=== PATIENT | female | born 1930 | race Caucasian/White ===

== ENCOUNTER 2019-10-05 13:54 | Inpatient (IN) | payer MEDICARE, BC ==
[2019-10-05] MEDS: Lactated Ringers 1,000 ML IV SCH ×2 (15:55→21:23)
[2019-10-05] MEDS ORDERED: Acetaminophen 325 MG Tab PO PRN (15:55)
[2019-10-05] MEDS ORDERED: Acetaminophen 650 MG Tab.ER PO PRN (16:52)
[2019-10-05] MEDS ORDERED: Diclofenac Sodium 1% Gel 100 GM Tube TOP SCH (17:00)
[2019-10-05] MEDS: Carvedilol 6.25 MG Tab PO SCH (17:59)
--- NOTE | 2019-10-05 19:18 | HP ---
ADMISSION DATE: 10/05/2019 CHIEF COMPLAINT: Weakness, dehydration, urinary tract infection. HISTORY OF PRESENT ILLNESS: Mrs. Almanzar is an 89-year-old resident of [facility] with a history of dementia, rheumatoid arthritis, chronic heart murmur, and hypertension. She has had a history of frequent recurrent urinary tract infections. She was seen at [facility] last week for urinary tract infection initially treated with Cipro. She did not respond to this and had 2 visits last week where she received both IV fluid for dehydration and IV Rocephin and IM Rocephin. She returned to the memory care unit at [facility], and over the weekend, declined in strength, level of alertness, oral intake, and apparently is not able to keep enough liquids in to hydrate her. For this reason, she came to the hospital for admission. The patient is unable to give a reliable history due to her dementia. Her daughter accompanies her today, however, and can give history of the recent illness and some of her past medical history. She did have a fever last week up to 102 around 10 days ago. After she was initially treated for urinary tract infection, the fever resolved and has not come back. She has never had any respiratory symptoms with this. She has not had nausea, vomiting, or diarrhea. 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 She has a history of coronary artery disease with aortic stenosis, hypertension, hyperlipidemia, GERD, type 2 diabetes, osteoporosis. She has slowly advancing dementia. She is status post right total knee arthroplasty. She has had mixed urinary incontinence and she is on long-term methotrexate for her rheumatoid arthritis. MEDICATIONS: 1. Ranitidine 150 mg p.o. b.i.d. 2. Oxybutynin 5 mg p.o. at bedtime. 3. Methotrexate 10 mg every Saturday. 4. Melatonin 3 mg at bedtime. 5. Milk of magnesia daily p.r.n. 6. Loperamide p.r.n. 7. Lisinopril 40 mg daily. 8. Folic acid 1 mg daily. 9. Duloxetine 60 mg daily. 10.Aricept 10 mg daily. 11.Diclofenac gel q.i.d. 12.Vitamin D 2000 units daily. 13.She has also recently started oral cephalexin for the UTI. 14.Carvedilol 6.25 mg b.i.d. 15.BuSpar 5 mg b.i.d. 16.Aspirin 81 mg daily. 17.Tylenol Arthritis p.r.n. ALLERGIES: Penicillin. HABITS: Nonsmoker and nondrinker. FAMILY AND SOCIAL HISTORY: The patient is . She lives at [facility]. She was accompanied by her daughter, Celina Bermeo, today. REVIEW OF SYSTEMS: GENERAL: No seizures, syncope. She has had approximately 15-pound weight loss over last couple of months, however. HEENT: No recent changes in hearing or vision. RESPIRATORY: No cough or respiratory symptoms. CHEST: No complaints of chest pain. ABDOMEN: No abdominal pains, nausea, or diarrhea. EXTREMITIES: She has had good control of her arthritic joint pain when she went on the methotrexate and Cymbalta. No extremity swelling or skin rash. PHYSICAL EXAMINATION: GENERAL: She is awake, and pleasant. She seems to understand occasional questions, but is not able to carry on a conversation or answer reliably with apparent dementia. HEENT: Show pupils to be equal and reactive. Oropharynx clear. Mouth dry. LUNGS: Clear with distant breath sounds. HEART: Regular with a 3/6 systolic murmur loudest in the aortic area. No rub or gallop heard. ABDOMEN: Normal bowel sounds. Soft. No distention. No tenderness. EXTREMITIES: Show no edema and healthy-appearing feet. LABORATORY DATA: White count 15,800, hemoglobin 13.2, MCV 92, 76 segs, 5 bands, 10 lymphocytes, 8 monos, 1 baso. Sodium 159, potassium 3.7, chloride 121, BUN 50, creatinine 1.4. Lactic acid 2.1. Urinalysis pending. ASSESSMENT: An 89-year-old woman with rheumatoid arthritis, mild immunosuppression, and dementia, now admitted with relatively severe dehydration and recent urinary tract infection. PLAN: Urinalysis is sent and pending. She is started on IV fluids. We will start IV antibiotics as well. I anticipate a short hospitalization with plans to return to her assisted living facility memory care unit at [facility] upon discharge. We will continue to provide palliative care measures for Mrs. Almanzar's underlying dementia and other health problems. /[id number] DARCI/SYED
[2019-10-05] MEDS: Oxybutynin 5 MG Tab PO SCH (21:26)
[2019-10-05] MEDS: Melatonin 3 MG Tab PO SCH (21:26)
[2019-10-05] MEDS: Donepezil 10 MG Tab PO SCH (21:26)
[2019-10-06] MEDS: Lactated Ringers 1,000 ML IV SCH (04:37)
[2019-10-06] MEDS ORDERED: DULoxetine 60 MG Cap PO SCH (09:00)
[2019-10-06] MEDS: Carvedilol 6.25 MG Tab PO SCH ×2 (09:33→19:14)
[2019-10-06] MEDS: Aspirin 81 MG Tab.EC PO SCH (09:33)
[2019-10-06] MEDS: Folic Acid 1 MG Tab PO SCH (09:33)
[2019-10-06] MEDS: DULoxetine 30 MG Cap PO SCH (09:33)
[2019-10-06] MEDS: Famotidine 10 MG Tab PO SCH (09:33)
[2019-10-06] MEDS: Sodium Chloride 0.45% 1,000 ML IV SCH ×3 (09:34→21:09)
--- NOTE | 2019-10-06 13:48 | PN ---
DATE SEEN: 10/06/2019 HISTORY: Ms. Almanzar is an 89-year-old resident of the memory unit at [facility]. She was seen as an outpatient for urinary tract infection with dehydration and was given IV antibiotic and IV fluid as an outpatient. However, she was unable to take in enough fluids to sustain herself, and she was admitted to acute care yesterday. She was given a fluid bolus of a liter of lactated Ringer's followed by 150 an hour overnight. This morning, she is a little bit more alert. She is eating breakfast. She has been afebrile overnight. Her lab studies included a sodium of 159, chloride 121, BUN 50, creatinine 1.4, and a lactic acid of 2.1 on admission. This morning, her sodium is 158, chloride 122, BUN 51, creatinine 1.4, and her lactic acid down to normal at 1.5. ProBNP 12,500. PHYSICAL EXAMINATION: GENERAL: She answers questions in one word answers and is eating breakfast well, examined. LUNGS: Have distant breath sounds. No consolidation. HEART: Regular without murmur. ABDOMEN: Soft. EXTREMITIES: Show no edema. VITAL SIGNS: Blood pressure 93/52, pulse 78, respirations 18. ASSESSMENT: 1. Severe dehydration with hypernatremia and azotemia. 2. History of urinary tract infection, treated as an outpatient. 3. No clinical or laboratory evidence of sepsis today. PLAN: We will discontinue her IV antibiotics. Change her IV fluid from lactated Ringer's to half-normal saline. Recheck labs in the a.m. and continue oral intake as tolerated. I anticipate another 24 to 48 hours of acute hospitalization followed by plans to return to [facility] upon recovery. /[id number] DARCI/SYED
[2019-10-06] MEDS: WATER FOR INJECTION IV SCH (17:37)
[2019-10-06] MEDS: AZTREONAM IV SCH (17:37)
[2019-10-06] MEDS: STERILE IV SCH (17:37)
[2019-10-06] MEDS: Donepezil 10 MG Tab PO SCH (20:44)
[2019-10-06] MEDS: Melatonin 3 MG Tab PO SCH (20:44)
[2019-10-06] MEDS: Oxybutynin 5 MG Tab PO SCH (20:44)
[2019-10-07] MEDS: STERILE IV SCH ×2 (02:45→09:46)
[2019-10-07] MEDS: AZTREONAM IV SCH ×2 (02:45→09:46)
[2019-10-07] MEDS: WATER FOR INJECTION IV SCH ×2 (02:45→09:46)
[2019-10-07] MEDS: Sodium Chloride 0.45% 1,000 ML IV SCH ×3 (03:51→17:14)
[2019-10-07] MEDS: Carvedilol 6.25 MG Tab PO SCH (09:43)
[2019-10-07] MEDS: DULoxetine 30 MG Cap PO SCH (09:43)
[2019-10-07] MEDS: Aspirin 81 MG Tab.EC PO SCH (09:44)
[2019-10-07] MEDS: Folic Acid 1 MG Tab PO SCH (09:44)
[2019-10-07] MEDS: Famotidine 10 MG Tab PO SCH (09:44)
[2019-10-07] MEDS ORDERED: Potassium Chloride 8 MEQ Tab.ER PO SCH (10:30)
--- NOTE | 2019-10-07 10:52 | PN ---
DATE SEEN: 10/07/2019 HISTORY: Ms. Almanzar is an 89-year-old woman who came to the hospital with severe dehydration. She had a urinary tract infection, treated as an outpatient and never was able to regain her hydration, nutrition, etc. On admission, her white count was 15,800. Sodium 159, chloride 121, potassium 3.7, BUN 50, and creatinine 1.4. She has been given IV fluids starting with lactated Ringer's and then switched over to half-normal saline. This morning, she is much more bright and alert. She was also started on IV antibiotic for concern for sepsis. This ruled out and her IV antibiotic was stopped. PHYSICAL EXAMINATION: GENERAL: She is alert and is speaking this morning. She is in good spirits. VITAL SIGNS: Blood pressure 92/62, pulse 85 and regular, respirations 18, O2 saturation 95% on room air, temperature 98. SKIN: Shows no rash. Mouth is dry. LUNGS: Clear. HEART: Regular with a 2-3/6 systolic murmur. ABDOMEN: Soft and nontender. EXTREMITIES: Show no edema. LABORATORY DATA: This morning, white count 10,400, hemoglobin 11.1. Sodium 150, potassium 3.3, chloride 117, BUN 34, creatinine 0.9. ASSESSMENT: 1. Severe dehydration with hypernatremia, hypokalemia, and azotemia. 2. Recent urinary tract infection. 3. Dementia. PLAN: We will continue her IV fluids. Follow up electrolytes in a.m. and anticipate discharge in 48 to 72 hours back to [facility] if she continues to improve. /[id number] DARCI/SYED HOPE
[2019-10-07] MEDS: Potassium Chloride 10 MEQ Tab.ER PO SCH ×2 (12:10→20:04)
[2019-10-07] MEDS: Melatonin 3 MG Tab PO SCH (20:04)
[2019-10-07] MEDS: Donepezil 10 MG Tab PO SCH (20:04)
[2019-10-07] MEDS: Oxybutynin 5 MG Tab PO SCH (20:04)
[2019-10-07] MEDS ORDERED: Carvedilol 3.125 MG Tab PO SCH (21:00)
[2019-10-08] MEDS: Sodium Chloride 0.45% 1,000 ML IV SCH ×2 (07:00)
[2019-10-08] MEDS: Folic Acid 1 MG Tab PO SCH (08:11)
[2019-10-08] MEDS: DULoxetine 30 MG Cap PO SCH (08:11)
[2019-10-08] MEDS: Aspirin 81 MG Tab.EC PO SCH (08:12)
[2019-10-08] MEDS: Potassium Chloride 10 MEQ Tab.ER PO SCH ×2 (08:12→20:59)
[2019-10-08] MEDS: Famotidine 10 MG Tab PO SCH (08:12)
[2019-10-08] MEDS ORDERED: Enoxaparin 30 MG/0.3 ML Syringe SUBCUT SCH (09:00)
[2019-10-08] MEDS ORDERED: Apixaban 5 MG Tab PO SCH ×2 (10:00→21:00)
[2019-10-08] MEDS: Apixaban 5 MG Tab PO SCH ×2 (10:40→20:59)
--- NOTE | 2019-10-08 14:43 | US ---
INDICATION: Swollen leg, question DVT. DUPLEX ULTRASOUND LEFT LOWER EXTREMITY VEINS: Utilizing 2-D real-time duplex Doppler spectral analysis and color flow imaging, examination of the left lower extremity veins was obtained including the common femoral vein, proximal DFE, proximal femoral vein, middle femoral vein, distal femoral vein, popliteal vein , and posterior tibial vein. The peroneal vein was not visualized. The deep venous structures were noncompressible and showed no color flow. Echogenic material is noted within them. There was no significant venous blood flow demonstrated with noncompressible venous structures noted throughout compatible with extensive deep venous thrombosis. IMPRESSION: Extensive deep venous thrombosis left lower extremity. MTDD
[2019-10-08] MEDS ORDERED: Magnesium Hydroxide 400 MG/5 ML Susp 30 ML Cup PO PRN (17:21)
[2019-10-08] MEDS: Donepezil 10 MG Tab PO SCH (20:59)
[2019-10-08] MEDS: Oxybutynin 5 MG Tab PO SCH (21:00)
[2019-10-08] MEDS: Melatonin 3 MG Tab PO SCH (21:00)
[2019-10-09] MEDS: Folic Acid 1 MG Tab PO SCH (08:45)
[2019-10-09] MEDS: Famotidine 10 MG Tab PO SCH (08:45)
[2019-10-09] MEDS: Potassium Chloride 10 MEQ Tab.ER PO SCH (08:45)
[2019-10-09] MEDS: Apixaban 5 MG Tab PO SCH (08:45)
[2019-10-09] MEDS: Aspirin 81 MG Tab.EC PO SCH (08:45)
[2019-10-09] MEDS: DULoxetine 30 MG Cap PO SCH (08:45)
[2019-10-09] MEDS ORDERED: Glycerin Adult 2.1 GM Supp RECTAL ONE (11:38)
--- NOTE | 2019-10-09 13:54 | PCM.DCSUM1 ---
Discharge Summary - Hospital Course HPI Initial Comments: Treated as an outpatient for UTI, severe dehydration in the clinic with daily IV fluid boluses as family did not want admission, was slowly improving but sodium remained elevated and was sent to ER and admitted for severe dehydration , hypernatremia, failure to thrive. Diagnosis: Stroke: No - Discharge Data Discharge Date: 10/09/19 Discharge Disposition: Home, W Home Health Agency 06 Condition: Stable - Referral to Home Health Date of Face to Face Encounter: 10/09/19 Reason for Homebound Status: Memory unit, End stage Dementia. Hospice Consult. Primary Care Physician: GLORIA Brooke Skilled Need: hospice consult - Discharge Diagnosis/Problem(s) (1) Dehydration, severe SNOMED Code(s): 145404715 ICD Code: E86.0 - DEHYDRATION Status: Resolved Current Visit: Yes (2) Hypernatremia SNOMED Code(s): 732459305 ICD Code: E87.0 - HYPEROSMOLALITY AND HYPERNATREMIA Status: Resolved Current Visit: Yes (3) DVT (deep venous thrombosis) SNOMED Code(s): 707200285 ICD Code: I82.409 - ACUTE EMBOLISM AND THOMBOS UNSP DEEP VN UNSP LOWER EXTREMITY Status: Acute Current Visit: Yes Qualifiers: DVT location: lower extremity Chronicity: acute Laterality: left (4) Dementia SNOMED Code(s): 60309773 ICD Code: F03.90 - UNSPECIFIED DEMENTIA WITHOUT BEHAVIORAL DISTURBANCE Status: Chronic Current Visit: Yes Qualifiers: Dementia type: unspecified type Dementia behavioral disturbance: without behavioral disturbance Qualified Code(s): F03.90 - Unspecified dementia without behavioral disturbance (5) Failure to thrive in adult SNOMED Code(s): 598350209 ICD Code: R62.7 - ADULT FAILURE TO THRIVE Status: Chronic Current Visit: Yes (6) Protein calorie malnutrition SNOMED Code(s): 243437517 ICD Code: E46 - UNSPECIFIED PROTEIN-CALORIE MALNUTRITION Status: Chronic Current Visit: Yes Qualifiers: Protein-calorie malnutrition severity: severe Qualified Code(s): E43 - Unspecified severe protein-calorie malnutrition - Patient Summary/Data Consults: Consultations 10/08/19 08:49 OT Evaluation and Treatment [CONS] Routine Please Evaluate and Treat. OT Reason for Consult: Discharge Planning This query below is only for informational purposes and is not editable. Admission Diagnosis/Problem: Dehydration PT Evaluation and Treatment [CONS] Routine Please Evaluate and Treat. PT Reason for Consult: Ambulation This query below is only for informational purposes and is not editable. Admission Diagnosis/Problem: Dehydration Hospital Course: Leila is an 89 yr old that was treated as outpatient for severe dehydration, hypernatremia, secondary to malnutrition and UTI, UTI resolved in outpatient setting but dehydration and hypernatremia was not improving so she was admitted from ER as family was not ready to put her on hospice yet(was discussed with them by her PCP). She was started on Lactated ringers, had a minimal response to this and then changed to 1/2NS and her sodium returned to normal. Patient was eating/drinking with staff assistance but still poor intake. Patient developed left leg swelling, had lower extremity ultrasound that showed DVT and started on Eliquis 10 mg bid, received 3 doses during admission and will complete 7 day course then decrease to 5 mg bid. Discontinued her Coreg, Lisinopril due to hypotension, as well as Oxybutynin which can make confusion worse. Also constipated, had glycerin suppository without results, had to have manual disimpaction done, will go home with MiraLAX and Milk of Magnesia. Recommend Hospice consult for end stage dementia, failure to thrive, concerned that she will decline again in outpatient setting as she has no drive to drink or eat. - Patient Instructions Diet: Regular Diet as Tolerated Activity: As Tolerated Driving: Do Not Drive Showering/Bathing: May Shower Notify Provider of: Fever, Increased Pain, Nausea and/or Vomiting Other/Special Instructions: Hospice Consult re: End stage dementia, failure to thrive in adult. Follow up with Ervin Murray PA-C via phone on SaturdayOctober 11. - Discharge Plan *PRESCRIPTION DRUG MONITORING PROGRAM REVIEWED*: Not Applicable *COPY OF PRESCRIPTION DRUG MONITORING REPORT IN PATIENT MONI: Not Applicable Prescriptions/Med Rec: Apixaban [Eliquis] 10 mg PO BID 5 Days #11 tablet Magnesium Hydroxide [Milk of Magnesia] 30 ml PO DAILY PRN 30 Days #1 bottle PRN Reason: Constipation Polyethylene Glycol 3350 [Miralax] 17 gm PO DAILY #1 bottle Home Medications: Home Meds DULoxetine [Cymbalta] 60 mg PO DAILY 09/11/13 [History] Donepezil HCl [Aricept] 10 mg PO BEDTIME 09/11/13 [History] Folic Acid 1 mg PO DAILY 09/11/13 [History] Methotrexate 10 mg PO SA@08 09/11/13 [History] Acetaminophen [Tylenol Arthritis] 650 mg PO DAILY PRN 10/05/19 [History] Aspirin [Halfprin] 81 mg PO DAILY 10/05/19 [History] Diclofenac Sodium [Voltaren 1% Gel] 2 gm TOP QID 10/05/19 [History] Loperamide HCl [Imodium A-D] 2 mg PO Q12H PRN 10/05/19 [History] Magnesium Hydroxide [Milk of Magnesia] 30 ml PO DAILY PRN 10/05/19 [History] Melatonin 3 mg PO BEDTIME 10/05/19 [History] Naproxen Sodium 220 mg PO DAILY PRN 10/05/19 [History] Ranitidine HCl [Ranitidine] 150 mg PO BID 10/05/19 [History] busPIRone [Buspar] 5 mg PO BID@12,20 10/05/19 [History] Apixaban [Eliquis] 10 mg PO BID 5 Days #11 tablet 10/09/19 [Rx] Magnesium Hydroxide [Milk of Magnesia] 30 ml PO DAILY PRN 30 Days #1 bottle 04/19 [Rx] Polyethylene Glycol 3350 [Miralax] 17 gm PO DAILY #1 bottle 10/09/19 [Rx] Oxygen Therapy Mode: Room Air Forms: Take Home DC Nutrition Plan Referrals: Ervin Murray PA [Primary Care Provider] - - Discharge Summary/Plan Comment DC Time >30 min.: Yes - General Info Date of Service: 10/09/19 Admission Dx/Problem (Free Text: Leila is pleasantly confused this morning, no BM for a couple of days. Left leg is swollen secondary to DVT. Staff has been feeding and cueing her to drink. Incontinent with briefs. - Patient Data Vitals - Most Recent: Last Vital Signs Temp 98.3 F 10/09/19 08:00 Pulse 62 10/09/19 08:00 Resp 17 10/09/19 08:00 BP 84/48 L 10/09/19 08:00 Pulse Ox 94 L 10/09/19 08:00 Weight - Most Recent: 101 lb I&O - Last 24 hours: Intake & Output 10/08/19 10/09/19 10/09/19 22:59 06:59 14:59 Intake Total 200 100 Balance 200 100 PER Results - Last 24 hrs: Microbiology 10/05/19 18:57 Aerobic Blood Culture - Preliminary Blood NO GROWTH AFTER 3 DAYS Anaerobic Blood Culture - Preliminary NO GROWTH AFTER 3 DAYS 10/05/19 18:50 Aerobic Blood Culture - Preliminary Blood NO GROWTH AFTER 3 DAYS Anaerobic Blood Culture - Preliminary NO GROWTH AFTER 3 DAYS Med Orders - Current: Current Medications Acetaminophen (Tylenol) 650 mg PO Q4H PRN PRN Reason: Pain (Mild 1-3)/fever Acetaminophen (Tylenol Arthritis Pain) 650 mg PO DAILY PRN PRN Reason: Pain Apixaban (Eliquis) 10 mg PO BID [facility] Last Admin: 10/09/19 08:45 Dose: 10 mg Aspirin (Halfprin) 81 mg PO DAILY [facility] Last Admin: 10/09/19 08:45 Dose: 81 mg Diclofenac Sodium (Voltaren 1% Gel) 2 gm TOP QID [facility] Donepezil HCl (Aricept) 10 mg PO BEDTIME [facility] Last Admin: 10/08/19 20:59 Dose: 10 mg Duloxetine HCl (Cymbalta) 30 mg PO DAILY [facility] Last Admin: 10/09/19 08:45 Dose: 30 mg Famotidine (Pepcid) 10 mg PO DAILY [facility] Last Admin: 10/09/19 08:45 Dose: 10 mg Folic Acid (Folic Acid) 1 mg PO DAILY [facility] Last Admin: 10/09/19 08:45 Dose: 1 mg Magnesium Hydroxide (Milk Of Magnesia) 30 ml PO DAILY PRN PRN Reason: Constipation Last Admin: 10/08/19 18:08 Dose: 30 ml Melatonin (Melatonin) 3 mg PO BEDTIME [facility] Last Admin: 10/08/19 21:00 Dose: 3 mg Methotrexate (Methotrexate) 10 mg PO SA@08 [facility] Oxybutynin Chloride (Oxybutynin) 5 mg PO BEDTIME [facility] Last Admin: 10/08/19 21:00 Dose: 5 mg Potassium Chloride (Klor-Con 10) 10 meq PO BID [facility] Last Admin: 10/09/19 08:45 Dose: 10 meq Discontinued Medications Apixaban (Eliquis) 10 mg PO BID [facility] Apixaban (Eliquis) 5 mg PO BID [facility] Aztreonam (Azactam) 1 gm IVPUSH ONETIME ONE Stop: 10/05/19 17:31 Last Admin: 10/05/19 17:38 Dose: 1 gm Carvedilol (Coreg) 6.25 mg PO BIDMEALS [facility] Last Admin: 10/07/19 09:43 Dose: Not Given Carvedilol (Coreg) 3.125 mg PO BID [facility] Duloxetine HCl (Cymbalta) 60 mg PO DAILY [facility] Enoxaparin Sodium (Lovenox) 30 mg SUBCUT Q24H [facility] Last Admin: 10/08/19 09:55 Dose: Not Given Glycerin (Sani-Supp Adult) 1 supp RECTAL ONETIME ONE Stop: 10/09/19 11:39 Last Admin: 10/09/19 12:39 Dose: 1 supp Lactated Ringer's (Ringers, Lactated) 1,000 mls @ 150 mls/hr IV ASDIRECTED [facility] Last Admin: 10/06/19 04:37 Dose: 150 mls/hr Aztreonam 0.5 gm/ Sodium (Chloride) 50 mls @ 100 mls/hr IV Q8H [facility] Last Admin: 10/06/19 09:43 Dose: 100 mls/hr Cefazolin Sodium 0.5 gm/ (Sodium Chloride) 50 mls @ 100 mls/hr IV Q12H [facility] Last Admin: 10/06/19 05:29 Dose: 100 mls/hr Sodium Chloride (Sodium Chloride 0.45%) 1,000 mls @ 150 mls/hr IV ASDIRECTED [facility] Last Admin: 10/08/19 07:00 Dose: 150 mls/hr Aztreonam 0.5 gm/ Sterile (Water) 10 mls @ 150 mls/hr IV Q8H [facility] Last Admin: 10/07/19 09:46 Dose: 150 mls/hr - Exam General: Reports: Alert, Cooperative (pleasantly confused), No Acute Distress Lungs: Reports: Clear to Auscultation, Normal Respiratory Effort Cardiovascular: Reports: Regular Rate, Regular Rhythm GI/Abdominal Exam: Normal Bowel Sounds, Soft, Non-Tender, No Distention Extremities: No Pedal Edema (RLE), Pedal Edema (LLE up to thigh) Skin: Reports: Warm, Dry, Intact *Q Meaningful Use (DIS) - VTE *Q VTE Mechanical Contraindications *Q: At Risk for Falls VTE Pharmacological Contraindications *Q: Risk of Bleeding
[2019-10-10] MEDS ORDERED: Methotrexate 2.5 MG Tab PO SCH (08:00)
== END 2019-10-09 14:45 | disposition home health service (06) | DRG 640 ==
LOC: FB.MS 13:54
PROVIDERS: ADMIT Family Medicine; ATTEND Family Medicine
DX: E87.0 Hyperosmolality and hypernatremia (principal); E43 Unspecified severe protein-calorie malnutrition; I82.402 Acute embolism and thrombosis of unspecified deep veins of left lower extremity; G61.0 Guillain-Barre syndrome; E86.0 Dehydration; F03.90 Unspecified dementia, unspecified severity, without behavioral disturbance, psychotic disturbance, mood disturbance, and anxiety; I95.9 Hypotension, unspecified; K59.00 Constipation, unspecified; M06.9 Rheumatoid arthritis, unspecified; I10 Essential (primary) hypertension; I25.10 Atherosclerotic heart disease of native coronary artery without angina pectoris; I35.0 Nonrheumatic aortic (valve) stenosis; E78.5 Hyperlipidemia, unspecified; K21.9 Gastro-esophageal reflux disease without esophagitis; E11.9 Type 2 diabetes mellitus without complications; M81.0 Age-related osteoporosis without current pathological fracture; Z96.651 Presence of right artificial knee joint; N39.46 Mixed incontinence; E87.6 Hypokalemia; R79.89 Other specified abnormal findings of blood chemistry; Z79.899 Other long term (current) drug therapy; Z79.82 Long term (current) use of aspirin; Z87.440 Personal history of urinary (tract) infections; Z88.0 Allergy status to penicillin
CPT/HCPCS: 36415; 71045; 80053; 80069; 81001; 83605; 83880; 85018; 85025; 87040; 93971-LT; A9270-GY; J0690; J3490; J7050; J7120